=== PATIENT | female | born 1970 | race Caucasian/White ===

== ENCOUNTER → 2016-08-18 | Outpatient (CLI) | payer OTHER ==
--- NOTE | 2016-08-18 17:40 | DX ---
Lumbar Spine With Flexion/Extension (4 views) History: Back pain. Findings: Vertebral body heights are well maintained. There are no subluxations with flexion and e xtension. Intervertebral disks are normal. No osteophytes are seen. Facet joints are normal bilateral ly. Paravertebral soft tissues are normal. Impression: Normal lumbar spine with flexion/extension.
== END ==
LOC: CIMAGING 15:25
PROVIDERS: ATTEND Physical Medicine & Rehabilitation
DX: M54.9 Dorsalgia, unspecified (principal)
CPT/HCPCS: 72100-PO